=== PATIENT | female | born 1990 | race Caucasian/White ===

== ENCOUNTER 2016-09-25 11:40 | Emergency (ER) | payer OTHER ==
--- NOTE | 2016-09-25 14:12 | DIAGNOSTIC IMAGING REPORT ---
PROCEDURE: CT ABD/PELVIS WITH CONTRAST CLINICAL INDICATION: Vomiting, lower abdominal pain and WBC 17.9. Initial encounter TECHNIQUE: 125 ml of Isovue 300 were injected intravenously and axial images were obtained of the entire abdomen and pelvis with sagittal and coronal reformations. COMPARISON: None. FINDINGS: ABDOMEN: Lung base are clear. Heart size is normal. Liver, gallbladder, pancreas, spleen, adrenal glands, kidneys and abdominal aorta are normal. Decompression of the transverse to sigmoid colon. PELVIS: Normal appendix. 2.5 cm right ovarian cyst. Uterus and bladder are normal. There is no pelvic mass, free fluid or inflammatory changes. Osseous structures are unremarkable. IMPRESSION: 1. 2.5 cm right ovarian cyst 2. Normal appendix All CT scans at this facility use dose modulation, iterative reconstruction, and/or weight-based dosing when appropriate to reduce radiation dose to as low as reasonably achievable.
--- NOTE | 2016-09-25 22:07 | ED MAR SUMMARY ---
..... Medication Administration Record [facility] [address] [place] [address] Patient: MARLEE WEINSTEIN Visit ID: [id number] 26y, F Weight: 97.5 kg Height/Length: 70 in BMI: 30.8 ALLERGIES: No Known Drug Allergy Start 12:09/25/2016 Jacey Hazel, Medication Administered: IV NS (SALINE), Dose: IV Fluids, Bolus: 1000 mL wide open, Dispensed: 1000 mL bag, Site: #1 left AC. Medication Ordered: IV NS with Normal Saline 1 Liter: initial bolus 1000 mL (1000 mL/hr), then 1000 mL/hr (NOW). Given 12:09/25/2016 Jacey Hazel, Medication Administered: ZOFRAN [IVP] (ONDANSETRON HCL), Dose: 4 mg IVP, Site: #1 left AC. Medication Ordered: Zofran IV 4 mg (NOW). Given 13:09/25/2016 Jacey Hazel, Medication Administered: ZOFRAN [IVP] (ONDANSETRON HCL), Dose: 4 mg IVP, Site: #1 left AC. Medication Ordered: Zofran IV 4 mg (NOW). Given 13:09/25/2016 Jacey Hazel, Medication Administered: TORADOL [IVP], Dose: 30 mg IVP, Site: #1 left AC. Medication Ordered: Toradol IV 30 mg (NOW).
--- NOTE | 2016-09-25 22:07 | ED MED RECONCILIATION SUMMARY ---
Patient: MARLEE WEINSTEIN Medication Reconciliation Report [facility] VisitID: [id number] [address] [place] [address] 26y, F Registration Date/Time: 09/25/2016 Weight: 97.5 kg Height/Length: 70 in. BMI: 30.8 ALLERGIES: No Known Drug Allergy The patient's Home Medications are listed below: NONE. The source(s) of the original Home Medication information: Not obtained. The following Medications were given to the patient in the Emergency Department: IV NS IV Fluids bolus 1000 mL wide open, administered: 09/25/2016 12:19:00 PM Zofran [IVP] IVP 4 mg, administered: 09/25/2016 12:19:00 PM Zofran [IVP] IVP 4 mg, administered: 09/25/2016 1:23:00 PM Toradol [IVP] IVP 30 mg, administered: 09/25/2016 1:25:00 PM The following Medications were prescribed to the patient: None.
--- NOTE | 2016-09-25 22:07 | ED CLINICAL REPORT ---
Clinical Report - Physicians/Mid Levels [facility] [address] [place] [address] 09/25/2016 11:42 [id number] Time Seen: 13:07; initial patient contact, initial documentation, patient care assumed. Arrived- By private vehicle. Historian- patient. HISTORY OF PRESENT ILLNESS Chief Complaint: VOMITING and DIARRHEA. This started about 4 days ago and is still present. No recent travel. She has had severe nausea. She has had severe vomiting. The vomiting has occurred numerous times and has been bilious and blood-tinged. No feculent emesis, coffee-grounds emesis, frankly bloody emesis or unusually dark emesis. She has had severe diarrhea. This has occurred numerous times. It has been watery. No bloody, mucous containing or blood-tinged diarrhea. No black stools, bloody stools, constipation, flank pain or history of possible bad food exposure. No known contact with a sick individual or change in routine. She has had moderate, constant abdominal pain. The pain is described as generalized and associated with nausea, vomiting and diarrhea. No radiation of abdominal pain to the back. Has not recently been camping or on antibiotics. The illness is described as severe. Similar symptoms previously: None. Recent medical care: Not recently seen/assessed. REVIEW OF SYSTEMS No fever, difficulty with urination, dark urine, chest pain or difficulty breathing. Denies current . All systems otherwise negative, except as recorded above. PAST HISTORY Negative. SOCIAL HISTORY Former smoker. Occasional alcohol use. History of occasional drug use: marijuana. No recent travel. Is a local resident. FAMILY HISTORY Negative. ADDITIONAL NOTES The nursing notes have been reviewed with agreement regarding the chief complaint, HPI, ROS, PMH and patient medications and allergies. PHYSICAL EXAM Vital Signs: 09/25/2016 11:57 BP: 159/94. HR: 70. RR: 18. O2 saturation: 99%. Temp: 98.4 F. Have been reviewed as abnormal and appear to be correct. Hypertensive. Heart rate normal. Respiratory rate normal. Temperature normal. Oxygen saturation normal. Appearance: Alert. Oriented X3. No acute distress. Eyes: Pupils equal, round and reactive to light. Eyes normal inspection. Neck: Normal inspection. Neck supple. CVS: Normal heart rate and rhythm. Heart sounds normal. Pulses normal. Respiratory: No respiratory distress. Breath sounds normal. Abdomen: Soft and nontender. Bowel sounds normal. No organomegaly. No mass. Back: Normal inspection. Skin: Skin warm and dry. Normal skin color. No rash. Normal skin turgor. Extremities: Extremities exhibit normal ROM. No lower extremity edema. Neuro: Oriented X 3. No motor deficit. No sensory deficit. LABS, X-RAYS, AND EKG EKG: EKG time: (1341). No acute process. No acute ischemia. Normal EKG. Rate: 61. Normal EKG. The study has been interpreted contemporaneously by me (and dr gleason). The EKG appears to be a good tracing. Interpretation time: 1343. Abdominal CT: . IMPRESSION: 1. 2.5 cm right ovarian cyst 2. Normal appendix All CT scans at this facility use dose modulation, iterative reconstruction, and/or weight-based dosing when appropriate to reduce radiation dose to as low as reasonably achievable. Electronically Final signed by:Emigdio Patel MD 09/25/2016 2:12:19 PM. The study was interpreted by the radiologist and discussed with the radiologist. Interpretation time: 14:13. PROGRESS AND PROCEDURES Course of Care: nurse reporting pt was drinking water and vomited it up, orders for reglan given nurse asking me to fill out ama form, stating pt is refusing k and refusing to stay for tx. Differential Diagnosis: I considered gastritis, peptic ulcer disease, ischemia, gastroesophageal reflux disease, gastroparesis, Crohn's disease, ulcerative colitis, small bowel obstruction, colonic obstruction, colon cancer, gastroenteritis, cholecystitis, pancreatitis, viral syndrome, enterocolitis, urinary tract infection, hepatitis, sepsis, drugs and as a possible cause of vomiting in this patient. This is a partial list of diagnoses considered. Above considerations are based on history, physical exam, laboratory data, EKG and other information. Differential diagnosis was discussed with patient. CLINICAL IMPRESSION Intractable vomiting with nausea. No dehydration or volume depletion. Not bilious. INSTRUCTIONS (htn). Follow-up: Screening today revealed the patient's blood pressure to be in the hypertensive range. The patient should follow up with a primary care provider for blood pressure management. (Electronically signed by Susan Bravo A.R.N.P. 09/25/2016 22:07)
--- NOTE | 2016-09-25 22:07 | ED NURSING NOTES ---
Clinical Report - Nurses [facility] [place] [place] [address] 09/25/2016 11:42 Patient: MARLEE WEINSTEIN TRIAGE Triage time 1157. Acuity: LEVEL 3. Chief Complaint: ABDOMINAL PAIN, NAUSEA and VOMITING. Alert. --12:02 Jacey Hazel 11:57 09/25/16. BP: 159/94. HR: 70. RR: 18. O2 saturation: 99%. Temp: 98.4 F. Pain level now 03/24. --12:02 Jacey Hazel. Weight: 97.5 kg. Height/Length: 70 inches. BMI: 30.8. --11:57 Jacey Hazel. Medications None. --11:59 Jacey Hazel. Allergies No Known Drug Allergy. --11:59 Jacey Hazel. History Arrived by private vehicle. Historian: patient. Accompanied by friend. Onset. (3 days ago). Treatment IMPROVEMENT LEADER: None. PAST MEDICAL HX: Negative. Immunizations: up-to-date. SOCIAL HX: Former smoker, end date 05/2016. Occasional alcohol use. History of drug use: marijuana. --12:02 Jacey Hazel. Interventions ID band on patient. To treatment room. --12:02 Jacey Hazel. PHYSICAL ASSESSMENT Ambulatory to room. Patient gowned. GENERAL / NEURO / PSYCH: Alert. Oriented X 4. Appears in distress. HEENT: Mucous membranes are pink. RESPIRATORY: Respirations not labored. Breath sounds within normal limits. CVS: Normal sinus rhythm noted. Capillary refill less than 2 seconds. GI / : The patient has had nausea. Abdominal tenderness diffusely. Bowel sounds within normal limits. SKIN: Skin is warm and dry. --12:02 Jacey Hazel. NURSING PROGRESS NOTES 12:18 09/25/2016 Site #1 started via IV in the left antecubital space with an 20g angiocath, with aseptic technique and good blood return; one attempt. Blood drawn: rainbow set. Labeled in the presence of the patient and sent to the lab. Saline lock flushed with 10 mL saline. --12:18 Jacey Hazel 12:09/25/2016 Started bag #1 1000 mL IV Fluids IV NS (Saline); bolus of 1000 mL wide open via site #1. Confirmed 5 rights. IV patency established. IV site checked: no pain, redness, or swelling. IV flushed thoroughly pre- and post-medication administration. --12:19 Jacey Hazel 12:09/25/2016 Zofran (Ondansetron HCl) IVP 4 mg given. via site #1. Allergies verified and confirmed 5 rights. IV patency established. IV site checked: no pain, redness, or swelling. IV flushed thoroughly pre- and post-medication administration. IVP given by RN. --12: Jacey Hazel Patient ID band checked for patient name and birthdate: patient confirmed. Instructions provided to collect clean catch urine and patient verbalized understanding. Clean catch urine collected with return of orange-colored urine; sample sent to lab for urinalysis and culture. Specimen labeled in the presence of the patient. --12:34 Roselyn Mena ER Tech1 ( Phone call received from lab, potassium 2.8, ERMD notified). --12:56 Carlie Dyson R.N. 13:23 09/25/2016 Zofran (Ondansetron HCl) IVP 4 mg given. via site #1. Allergies verified and confirmed 5 rights. IV patency established. IV site checked: no pain, redness, or swelling. IV flushed thoroughly pre- and post-medication administration. IVP given by RN. --13:23 Jacey Hazel 13:25 09/25/2016 Toradol IVP 30 mg given. via site #1. Allergies verified and confirmed 5 rights. IV patency established. IV site checked: no pain, redness, or swelling. IV flushed thoroughly pre- and post-medication administration. IVP given by RN. --13:25 Jacey Hazel EKG time: (0135). EKG was ordered, performed by a tech and shown to the ED physician. --13:43 Roselyn Mena, Tech1 15:56 09/25/2016 Site #1 removed upon discharge. Bandaid applied. --15:56 Jacey Hazel ( Went to pts room to give potassium, pt was found to be vomiting in a bag, large amounts of clear fluid, pt was confronted as she was to be NPO, pt admits to drinking water despite being asked not too, provider aware, orders for reglan, pt given reglan and #2 NS up, went back to pt room in a few minutes with IV potassium, had just started it, pt began to cry states she doesn't want to be here anymore and wants to go home, pt had some tearfulness earlier before reglan post vomiting and stated she was "just ready for this to be done", but did not verbally state at that time she wanted to leave, I ex[plained to the pt she was a grown adult and if she wanted to leave AMA she could, I discussed this with the provider, and I explained the consequences with the pt that included related to the low potassium, I explained the benefits of staying, pt signed form, IV was dc'd, pt left refusing any more vitals, sts she has complete understanding of situation). --15:56 Jacey Hazel. DISPOSITION / DISCHARGE The patient left the Emergency Department against medical advice and without completion of treatment; patient was unaccompanied. The patient appears to be alert and coherent. She notified the ED staff prior to leaving the department and stated is leaving the ED (wanted to go home). Notified the ED physician of patient departure. Prior to leaving the ED, she was advised to stay for completion of treatment and return if needed. She was informed of the risks of leaving and verbalized understanding of these risks. Patient signed form prior to leaving. She left the Emergency Department ambulatory and via private vehicle. --15:57 Jacey Hazel. Locked/Released at 09/25/2016 15:59 by Jacey Hazel,
--- NOTE | 2016-09-25 22:07 | ED DISCHARGE INSTRUCTIONS ---
Patient: MARLEE WEINSTEIN General Instructions [facility] VisitID: [id number] [address] [place] [address] 26y, F Registration Date/Time: 09/25/2016 Intractable vomiting with nausea. No dehydration or volume depletion. Not bilious. INSTRUCTIONS (htn). Follow-up: Screening today revealed the patient's blood pressure to be in the hypertensive range. The patient should follow up with a primary care provider for blood pressure management. (Electronically signed by Susan Bravo A.R.N.P. 09/25/2016 22:07)
--- NOTE | 2016-09-25 22:07 | ED ORDER SUMMARY ---
..... Patient: MARLEE WEINSTEIN OrderSheet [facility] VisitID: [id number] [place] [address] 26y, F Registration Date/Time: 09/25/2016 ORDER SHEET Weight: 97.5 kg Allergies: No Known Drug Allergy GENERAL ORDERS: CBC w Diff Urgent (12:18 09/25/2016 E[facility] per protocol) (Ack 12:36 [facility]ouse ER Tech1) (13:03 [facility] ER Tech1) CMP Urgent (12:18 09/25/2016 [facility] per protocol) (Ack 12:36 [facility] ER Tech1) (13:03 [facility] ER Tech1) Amylase Urgent (12:18 09/25/2016 [facility] per protocol) (Ack 12:36 [facility] ER Tech1) (13:03 [facility] ER Tech1) Lipase Urgent (12:18 09/25/2016 [facility] per protocol) (Ack 12:36 [facility] ER Tech1) (13:03 [facility] ER Tech1) UA-Culture if indicated Urgent (12:18 09/25/2016 E[facility] per protocol) (12:33 LNations ER Tech1) Urine Urgent (12:18 09/25/2016 E[facility] per protocol) (12:33 LNations ER Tech1) Potassium Urgent (13:07 09/25/2016 [facility] verbal order read back to Roly Betancourt) (Ack 13:10 [facility] ER Tech1) (14:13 [facility] ER Tech1) CT Abd/Pel w Cont (No) (normal) Urgent (13:14 09/25/2016 HBivens A.R.N.P.) (Ack 13:17 [facility] ER Tech1) (13:58 [facility] ER Tech1) EKG - ER Stat (13:14 09/25/2016 HBivens A.R.N.P.) (13:34 LNations ER Tech1) MEDICATION ORDERS: Toradol IM 30 mg (NOW) (13:13 09/25/2016 HBivens A.R.N.P.) (Cancelled: Wrong Order13:24 [facility]) K-Dur PO 40 meq (Do not crush or chew, NOW) (13:14 09/25/2016 HBivens A.R.N.P.) (Ack 13:25 [facility]) IV FLUIDS: IV NS with Normal Saline 1 Liter: initial bolus 1000 mL (1000 mL/hr), then 1000 mL/hr (NOW) (12:16 09/25/2016 [facility] per protocol) (12:19 [facility]) Zofran IV 4 mg (NOW) (12:17 09/25/2016 [facility] per protocol) (12:19 [facility]) IV Saline Lock (12:18 09/25/2016 [facility] per protocol) (12:18 [facility]) Zofran IV 4 mg (NOW) (13:13 09/25/2016 HBivens A.R.N.P.) (13:23 [facility]) KCl IV 20 meq/100mL (Run no faster than 10 units/hr, HIGH ALERT MEDICATION, NOW, Run no faster than 10 mEq/hr) (13:14 09/25/2016 HBivens A.R.N.P.) (Ack 13:25 [facility]) Toradol IV 30 mg (NOW) (13:24 09/25/2016 [facility] verbal order read back to HBivens A.R.N.P.) (13:25 [facility]) Reglan IV 10 mg (NOW) (14:52 09/25/2016 HBivens A.R.N.P.) ORDER SHEET NOTES: [Electronically signed by Jacey Hazel (15:59 09/25/2016)] [Electronically signed by Susan Bravo A.R.N.P. (22:07 09/25/2016)] [Electronically locked/signed by Jacey Hazel (15:59 09/25/2016)]
--- NOTE | 2016-09-25 22:07 | ED MED RECONCILIATION SUMMARY ---
Patient: MARLEE WEINSTEIN Medication Reconciliation Report [facility] VisitID: [id number] [address] [place] [address] 26y, F Registration Date/Time: 09/25/2016 Weight: 97.5 kg Height/Length: 70 in. BMI: 30.8 ALLERGIES: No Known Drug Allergy The patient's Home Medications are listed below: NONE. The source(s) of the original Home Medication information: Not obtained. The following Medications were given to the patient in the Emergency Department: IV NS IV Fluids bolus 1000 mL wide open, administered: 09/25/2016 12:19:00 PM Zofran [IVP] IVP 4 mg, administered: 09/25/2016 12:19:00 PM Zofran [IVP] IVP 4 mg, administered: 09/25/2016 1:23:00 PM Toradol [IVP] IVP 30 mg, administered: 09/25/2016 1:25:00 PM The following Medications were prescribed to the patient: None.
--- NOTE | 2016-09-25 22:07 | ED ORDER SUMMARY ---
..... Patient: MARLEE WEINSTEIN OrderSheet [facility] VisitID: [id number] [place] [address] 26y, F Registration Date/Time: 09/25/2016 ORDER SHEET Weight: 97.5 kg Allergies: No Known Drug Allergy GENERAL ORDERS: CBC w Diff Urgent (12:18 09/25/2016 [facility] per protocol) (Ack 12:36 [facility] ER Tech1) (13:03 [facility] ER Tech1) CMP Urgent (12:18 09/25/2016 [facility] per protocol) (Ack 12:36 [facility] Tech1) (13:03 [facility] Tech1) Amylase Urgent (12:18 09/25/2016 [facility] per protocol) (Ack 12:36 [facility] Tech1) (13:03 [facility] Tech1) Lipase Urgent (12:18 09/25/2016 [facility] per protocol) (Ack 12:36 [facility] ER Tech1) (13:03 [facility] Tech1) UA-Culture if indicated Urgent (12:18 09/25/2016 [facility] per protocol) (12:33 LNations ER Tech1) Urine Urgent (12:18 09/25/2016 [facility] per protocol) (12:33 LNations ER Tech1) Potassium Urgent (13:07 09/25/2016 [facility] verbal order read back to Roly Betancourt) (Ack 13:10 [facility] ER Tech1) (14:13 [facility] ER Tech1) CT Abd/Pel w Cont (No) (normal) Urgent (13:14 09/25/2016 HBivens A.R.N.P.) (Ack 13:17 [facility] ER Tech1) (13:58 [facility] ER Tech1) EKG - ER Stat (13:14 09/25/2016 HBivens A.R.N.P.) (13:34 LNations ER Tech1) MEDICATION ORDERS: Toradol IM 30 mg (NOW) (13:13 09/25/2016 HBivens A.R.N.P.) (Cancelled: Wrong Order13:24 [facility]) K-Dur PO 40 meq (Do not crush or chew, NOW) (13:14 09/25/2016 HBivens A.R.N.P.) (Ack 13:25 [facility]) IV FLUIDS: IV NS with Normal Saline 1 Liter: initial bolus 1000 mL (1000 mL/hr), then 1000 mL/hr (NOW) (12:16 09/25/2016 [facility] per protocol) (12:19 [facility]) Zofran IV 4 mg (NOW) (12:17 09/25/2016 [facility] per protocol) (12:19 [facility]) IV Saline Lock (12:18 09/25/2016 [facility] per protocol) (12:18 [facility]) Zofran IV 4 mg (NOW) (13:13 09/25/2016 HBivens A.R.N.P.) (13:23 [facility]) KCl IV 20 meq/100mL (Run no faster than 10 units/hr, HIGH ALERT MEDICATION, NOW, Run no faster than 10 mEq/hr) (13:14 09/25/2016 HBivens A.R.N.P.) (Ack 13:25 [facility]) Toradol IV 30 mg (NOW) (13:24 09/25/2016 [facility] verbal order read back to HBivens A.R.N.P.) (13:25 [facility]) Reglan IV 10 mg (NOW) (14:52 09/25/2016 HBivens A.R.N.P.) ORDER SHEET NOTES: [Electronically signed by Jacey Hazel (15:59 09/25/2016)] [Electronically signed by Susan Bravo A.R.N.P. (22:07 09/25/2016)] [Electronically locked/signed by Jacey Hazel (15:59 09/25/2016)]
--- NOTE | 2016-09-25 22:07 | ED DISCHARGE INSTRUCTIONS ---
Patient: MARLEE WEINSTEIN General Instructions [facility] VisitID: [id number] [address] [place] [address] 26y, F Registration Date/Time: 09/25/2016 Intractable vomiting with nausea. No dehydration or volume depletion. Not bilious. INSTRUCTIONS (htn). Follow-up: Screening today revealed the patient's blood pressure to be in the hypertensive range. The patient should follow up with a primary care provider for blood pressure management. (Electronically signed by Susan Bravo A.R.N.P. 09/25/2016 22:07)
--- NOTE | 2016-09-25 22:07 | ED MAR SUMMARY ---
..... Medication Administration Record [facility] [address] [place] [address] Patient: MARLEE WEINSTEIN Visit ID: [id number] 26y, F Weight: 97.5 kg Height/Length: 70 in BMI: 30.8 ALLERGIES: No Known Drug Allergy Start 12:09/25/2016 Jacey Hazel, Medication Administered: IV NS (SALINE), Dose: IV Fluids, Bolus: 1000 mL wide open, Dispensed: 1000 mL bag, Site: #1 left AC. Medication Ordered: IV NS with Normal Saline 1 Liter: initial bolus 1000 mL (1000 mL/hr), then 1000 mL/hr (NOW). Given 12:09/25/2016 Jacey Hazel, Medication Administered: ZOFRAN [IVP] (ONDANSETRON HCL), Dose: 4 mg IVP, Site: #1 left AC. Medication Ordered: Zofran IV 4 mg (NOW). Given 13:09/25/2016 Jacey Hazel, Medication Administered: ZOFRAN [IVP] (ONDANSETRON HCL), Dose: 4 mg IVP, Site: #1 left AC. Medication Ordered: Zofran IV 4 mg (NOW). Given 13:09/25/2016 Jacey Hazel, Medication Administered: TORADOL [IVP], Dose: 30 mg IVP, Site: #1 left AC. Medication Ordered: Toradol IV 30 mg (NOW).
== END 2016-09-25 15:25 | disposition home or self-care (01) ==
LOC: ED SRH 11:40
DX: R11.2 Nausea with vomiting, unspecified (principal); Z87.891 Personal history of nicotine dependence
CPT/HCPCS: 90004; 90074; 90100; 92235; 92530; 92720; 92750; 93070; 95059